=== PATIENT | female | born 1945 | race Caucasian/White ===

== ENCOUNTER → 2018-10-13 10:38 | Outpatient (CLI) | payer MEDICARE, SELFPAY ==
[2018-10-13 11:12] LABS: Alanine Aminotransferase 40 IU/L (9-52); Aspartate Aminotransferase 33 IU/L (14-36); Blood Urea Nitrogen 16 mg/dL (7-17); Calcium 9.5 mg/dL (8.4-10.2); Carbon Dioxide 29 mmol/L (22-32); Chloride 100 mmol/L (98-107); Cholesterol 156 mg/dL (140-199); Estimated Glomerular Filt Rate > 60.0 mL/min (>60); Glucose 105 mg/dL (80-110); HDL Cholesterol 51 mg/dL (40-60); HEMOLYSIS < 15 (0-50); LDL Cholesterol Calculated 72 mg/dL (<100); Sodium 139 mmol/L (137-145); Triglycerides 163 mg/dL (35-150)
[2018-10-13 11:39] LABS: TSH w/ Reflex to FT4 1.85 uIU/mL (0.47-4.68)
== END ==
PROVIDERS: Visit Provider Internal Medicine
DX: E03.9 Hypothyroidism, unspecified (principal); E78.00 Pure hypercholesterolemia, unspecified; I10 Essential (primary) hypertension
CPT/HCPCS: 36415; 80048; 80061; 84443; 84450; 84460

== ENCOUNTER 2019-01-24 20:12 | Emergency (ER) | payer MEDICARE, SELFPAY ==
[2019-01-24 20:24] VITALS: BP 200/117; PULSE 88; TEMP 36.6; O2SAT 97; BMI 26.6
[2019-01-24 21:00] VITALS: BP 186/101; PULSE 77; RESP 16; O2SAT 98
--- NOTE | 2019-01-24 21:00 | ED_ITS ---
HPI - General Adult General Chief complaint: Hypertension Stated complaint: STATES HIGH BLOOD PRESSURE Time Seen by Provider: 01/24/19 21:00 Source: patient Mode of arrival: ambulatory Limitations: no limitations History of Present Illness HPI narrative: Patient is a 73-year-old female who comes emergency department today for evaluation because of her high blood pressure. She has recently been undergoing changes in her blood pressure medication under the direction of her primary doctor. Over the past couple days she has changed from metoprolol 2 times a day to the metoprolol ER once a day back to the metoprolol 2 times a day. She is also on lisinopril. She has been taking her blood pressure today and it has been in the 170s to 190 systolic. She denies any other symptoms. When she called the nurse advice line told her to come into the emergency department for evaluation. Related Data Home Medications Medication Instructions Recorded Confirmed ASPIRIN (Aspirin EC) 81 mg PO Q DAY #0 01/17/11 FOLIC ACID/VIT A/VIT B1/VIT 1 tab PO Q DAY #0 01/17/11 (#MULTIVITAMIN) Review of Systems Constitutional Denies fever(s) and Denies headache(s) Eyes Denies change in vision ENT Ears, Nose, Mouth, and Throat: Denies vertigo, Denies dizziness, Denies headach e(s) and Denies sore throat Cardiovascular Denies chest pain and Denies dyspnea Respiratory Denies dyspnea Gastrointestinal Gastrointestinal: Denies abdominal pain, Denies nausea and Denies vomiting Genitourinary Denies dysuria Musculoskeletal Denies myalgias and Denies arthralgias Integumentary/Breasts Denies rash Neurologic Denies confusion, Denies vertigo, Denies dizziness, Denies headache(s) and Denies paresthesias Psychiatric Denies confusion Hematologic/Lymphatic Denies easy bleeding and Denies easy bruising [facility] Medical History Hypertension (Acute) Social History Smoking Status: Never smoker Social History Smoking Status: Never smoker Exam Initial Vital Signs Initial Vital Signs: Vital Signs Temperature 98 F 01/24/19 20:24 Pulse Rate 88 01/24/19 20:24 Blood Pressure 200/117 H 01/24/19 20:24 Pulse Oximetry 97 01/24/19 20:24 Const General: cooperative, healthy appearing, comfortable, well developed, well groomed and No acute distress Orientation: alert, awake and oriented x3 HENMT Head: normal to inspection and normocephalic Resp Effort & Inspection: normal respiratory effort Auscultation: clear to auscultation bilaterally Cardio Rate: regular rate Rhythm: regular rhythm GI Inspection: non-distended Palpation: soft Skin Lesions: no lesions Rashes: no rashes Neuro General: alert, awake and oriented x3 Cognition: normal cognition Speech: speech normal Gait: normal gait Motor: muscle tone normal throughout Sensory Exam: no sensory deficits noted Extrem General: normal to inspection and capillary refill normal Psych Appearance: grossly normal and well kempt Course Vital Signs - 8 hr 01/24/19 20:24 01/24/19 21:00 01/24/19 21:32 Temperature 98 F Pulse Rate 88 77 77 Respiratory Rate 16 17 Blood Pressure 200/117 H Blood Pressure [Left Arm] 186/101 H 177/90 H Pulse Oximetry 97 98 95 01/24/19 22:08 Temperature Pulse Rate 72 Respiratory Rate 18 Blood Pressure 160/80 H Blood Pressure [Left Arm] Pulse Oximetry 96 Medical Decision Making MDM Narrative Medical decision making narrative: Patient is hypertensive but it is asymptomatic from this. Low suspicion for end-organ dysfunction. Will hold on further workup. Her blood pressure has gone down after sitting quietly in the room for period of time. Had a long discussion with the patient regarding her symptoms. We did discuss how she should be taking her blood pressure at home. Does appear that she is taking her medication as directed by her primary doctor. She told me that she was supposed to call her primary doctor tomorrow to discuss her blood pressure readings. She was given return precautions and follow-up instructions. She expressed understanding and agreement plan. Discharge Plan Departure Patient Disposition: Home Clinical Impression: Hypertension Qualifiers: Hypertension type: unspecified Qualified Code(s): I10 - Essential (primary) hypertension Discharge Date/Time: 01/24/19 22:09 Interventions: ED Discharge Assessment Last Done: 01/24/19 22:08 Instructions: DI for High Blood Pressure Activity Restrictions/Additional Instructions: Continue blood pressure medications as directed. Call Dr. Gomez tomorrow to schedule a follow-up. Return to the emergency department for any new or worsening symptoms Prescriptions: No Action ASPIRIN (Aspirin EC) 81 mg PO Q DAY Qty: 0 RF: 0 FOLIC ACID/VIT A/VIT B1/VIT (#MULTIVITAMIN) 1 tab PO Q DAY Qty: 0 RF: 0 Referrals: Almita Gomez MD [Primary Care Provider] -
[2019-01-24 21:32] VITALS: BP 177/90; PULSE 77; RESP 17; O2SAT 95
[2019-01-24 22:08] VITALS: BP 160/80; PULSE 72; RESP 18; O2SAT 96
== END 2019-01-24 22:09 | disposition home or self-care (01) ==
PROVIDERS: Emergency Provider Emergency Medicine; Family Provider Internal Medicine; PCP Internal Medicine
DX: I10 Essential (primary) hypertension (principal)
CPT/HCPCS: 36591; 99282

== ENCOUNTER → 2019-06-10 14:33 | Outpatient (CLI) | payer MEDICARE, SELFPAY ==
[2019-06-10 18:09] LABS: Hep C Virus Ab w/Reflex Quant NEGATIVE s/c (NEGATIVE)
== END ==
PROVIDERS: Internal Medicine Gastroenterology; Family Provider Internal Medicine; PCP Internal Medicine; Visit Provider Nurse Practitioner
DX: Z11.59 Encounter for screening for other viral diseases (principal)
CPT/HCPCS: 36415; 86803

== ENCOUNTER 2019-09-18 07:32 | Day surgery (SDC) | payer MEDICARE, SELFPAY ==
[2019-09-18] VITALS (8 sets, daily range): BP systolic 119–168; BP diastolic 74–87; PULSE 64–99; RESP 9–19; TEMP 36–37.1; O2SAT 91–99; BMI 25.8
[2019-09-18] MEDS: SODIUM CHLORIDE 0.9% 1,000 ML 100 ML IV (07:40)
--- NOTE | 2019-09-18 09:03 | PM.HP.1 ---
History of Present Illness History of Present Illness Chief complaint: [id number] SCREENING COLONOSCOPY W/POSS BX Patient History Family & Social History Social History: household members spouse Tobacco & Substance use: Smoking Status Never smoker alcohol intake frequency holiday/special occasion Substance Use Type does not use Meds Home Medications and Allergies Home Medications Medication Instructions Recorded Confirmed Type amlodipine 2.5 mg PO DAILY 09/18/19 09/18/19 History atorvastatin 10 mg PO BEDTIME 09/18/19 09/18/19 History coenzyme Q10 [CoQ-10] 100 mg PO DAILY 09/18/19 09/18/19 History levothyroxine 75 mcg PO DAILY 09/18/19 09/18/19 History lisinopril 40 mg PO DAILY 09/18/19 09/18/19 History metoprolol tartrate 50 mg PO BID 09/18/19 09/18/19 History Allergies Allergy/AdvReac Type Severity Reaction Status Date / Time No Known Drug Allergies Allergy Verified 09/18/19 07:48 Exam Vital Signs (past 8 hours): - 09/18/19 08:05 Temperature 98.7 F Pulse Rate 99 H Respiratory Rate 15 Blood Pressure 168/80 H Pulse Oximetry 99 Oxygen Delivery Method Room Air Narrative Exam Narrative: Oropharynx free of lesions Chest clear to auscultation percussion Cardiac exam reveals no S3 or murmur Assessment & Plan Assessment & Plan narrative: Need for colorectal cancer screening. Risks, benefits, alternatives have been explained.
--- NOTE | 2019-09-18 09:04 | PM.OP.ENDO ---
Operative Date/Time/Diagnoses Date of procedure: 09/18/19 Time of procedure: 09:04 Pre-op diagnosis: See indication and findings Procedure & Clinicians Study performed: Colonoscopy Same procedure as scheduled: Yes (Colorectal cancer screening) Indications: Colorectal cancer screening Surgeon: Kate Frank Procedure Notes Procedure in detail: After informed consent was obtained the patient was placed in left lateral decubitus position. The video colonoscope was introduced the rectum slowly advanced to cecum. On slow withdrawal mucosa was carefully examined. The scope was removed. The patient tolerated procedure well. The preparation was good. Blood loss none Complications none Findings 1. Severe sigmoid diverticulosis 2. Otherwise negative colonoscopy to cecum Patient will not need follow-up colonoscopy for 10 years if in excellent health.
[2019-09-18] MEDS: fentaNYL 250 MCG/5 ML INJ IV (09:06)
[2019-09-18] MEDS: MIDAZOLAM 5 MG/5 ML VIAL IV (09:06)
== END 2019-09-18 10:28 | disposition home or self-care (01) ==
LOC: ENDO 07:35
PROVIDERS: PCP Internal Medicine; Visit Provider Internal Medicine Gastroenterology
PROC: 0DJD8ZZ Inspection of Lower Intestinal Tract, Via Natural or Artificial Opening Endoscopic (ICD-10-PCS; CPT 45378; principal; 2019-09-18 08:30)
DX: Z12.11 Encounter for screening for malignant neoplasm of colon (principal); I10 Essential (primary) hypertension; K57.30 Diverticulosis of large intestine without perforation or abscess without bleeding
CPT/HCPCS: G0121; J2250; J3010

== ENCOUNTER → 2020-02-13 07:56 | Outpatient (CLI) | payer MEDICARE, SELFPAY ==
[2020-02-13 09:41] LABS: Alanine Aminotransferase 24 IU/L (<35); Albumin 4.3 g/dL (3.5-5.0); Albumin Globulin Ratio 1.5 (1.0-2.8); Alkaline Phosphatase 59 U/L (38-126); Aspartate Aminotransferase 37 IU/L (14-36); BUN Creatinine Ratio 17.1 (6-22); Bilirubin Total 0.6 mg/dL (0.2-1.3); Blood Urea Nitrogen 12 mg/dL (7-17); Calcium 9.5 mg/dL (8.4-10.2); Carbon Dioxide 28 mmol/L (22-32); Chloride 103 mmol/L (98-107); Cholesterol 137 mg/dL (140-199); Estimated Glomerular Filt Rate > 60.0 mL/min (>60); Globulin 2.9 g/dL (1.7-4.1); Glucose 105 mg/dL (80-110); HDL Cholesterol 50 mg/dL (40-60); HEMOLYSIS < 15 (0-50); LDL Cholesterol Calculated 64 mg/dL (<100); Potassium 3.6 mmol/L (3.4-5.1); Sodium 140 mmol/L (137-145); Total Protein 7.2 g/dL (6.3-8.2); Triglycerides 115 mg/dL (35-150)
[2020-02-13 10:08] LABS: TSH w/ Reflex to FT4 1.09 uIU/mL (0.47-4.68)
== END ==
PROVIDERS: PCP Internal Medicine; Referring Provider Internal Medicine; Visit Provider Internal Medicine
DX: I10 Essential (primary) hypertension (principal); E03.9 Hypothyroidism, unspecified; E78.5 Hyperlipidemia, unspecified
CPT/HCPCS: 36415; 80053; 80061; 84443

== ENCOUNTER → 2020-06-30 18:34 | Outpatient (ROUT) | payer MEDICARE, SELFPAY ==
[2020-06-30 19:12] LABS: Add Manual Diff / Slide Review NO; Basophils Absolute Auto 0 /uL (0-100); Basophils Percent Auto 0.6 % (0-2); Eosinophils Absolute Auto 100 /uL (0-450); Eosinophils Percent Auto 1.6 % (2-4); Hematocrit 41.3 % (36-46); Hemoglobin 13.7 g/dL (12.0-16.0); Lymphocytes Absolute Auto 1500 /uL (1100-4500); Lymphocytes Percent Auto 20.1 % (25-40); Mean Corpuscular HGB Conc 33.2 % (30-36); Mean Corpuscular Hemoglobin 30.4 PG (26-34); Mean Corpuscular Volume 91.6 fL (80-100); Monocytes Absolute Auto 500 /uL (0-900); Monocytes Percent Auto 6.6 % (3-14); Neutrophils Absolute Auto 5200 /uL (1500-7000); Neutrophils Percent Auto 71.1 % (50-75); Platelet Count 360 X10^3/uL (150-400); Red Blood Cell Count 4.51 X10^6/uL (4.0-5.2); Red Cell Distribution Width 13.5 % (11.6-14.8); White Blood Cell Count 7.3 X10^3/uL (4.5-11.0)
[2020-06-30 19:22] LABS: BUN Creatinine Ratio 24.5 (6-22); Blood Urea Nitrogen 27 mg/dL (7-17); Calcium 9.7 mg/dL (8.4-10.2); Carbon Dioxide 29 mmol/L (22-32); Chloride 101 mmol/L (98-107); Estimated Glomerular Filt Rate 48.6 mL/min (>60); Glucose 106 mg/dL (80-110); HEMOLYSIS < 15 (0-50); Potassium 4.9 mmol/L (3.4-5.1); Sodium 138 mmol/L (137-145)
[2020-06-30 20:10] LABS: Vitamin B12 315 pg/mL (239-931)
== END ==
PROVIDERS: PCP Internal Medicine; Visit Provider Internal Medicine
DX: I10 Essential (primary) hypertension (principal); R53.82 Chronic fatigue, unspecified
CPT/HCPCS: 80048; 82607; 85025

== ENCOUNTER → 2020-07-15 19:11 | Outpatient (ROUT) | payer MEDICARE, SELFPAY ==
[2020-07-15 19:44] LABS: BUN Creatinine Ratio 15.2 (6-22); Blood Urea Nitrogen 15 mg/dL (7-17); Calcium 9.9 mg/dL (8.4-10.2); Carbon Dioxide 27 mmol/L (22-32); Chloride 104 mmol/L (98-107); Estimated Glomerular Filt Rate 54.8 mL/min (>60); Glucose 94 mg/dL (80-110); HEMOLYSIS < 15 (0-50); Potassium 4.7 mmol/L (3.4-5.1); Sodium 138 mmol/L (137-145)
== END ==
PROVIDERS: PCP Internal Medicine; Visit Provider Internal Medicine
DX: N17.9 Acute kidney failure, unspecified (principal)
CPT/HCPCS: 80048

== ENCOUNTER → 2020-11-06 10:43 | Outpatient (CLI) | payer MEDICARE, SELFPAY ==
[2020-11-06] MEDS: COVID-19 VACC #1, MRNA(MOD) 100 MCG/0.5 ML VIAL IM (10:48)
== END ==
PROVIDERS: PCP Internal Medicine; Visit Provider Internal Medicine
DX: Z23 Encounter for immunization (principal)
CPT/HCPCS: 0011A; 91301

== ENCOUNTER → 2020-12-03 13:22 | Outpatient (CLI) | payer MEDICARE, SELFPAY ==
[2020-12-03] MEDS: COVID-19 VACC #2, MRNA(MOD) 100 MCG/0.5 ML VIAL IM (13:27)
== END ==
PROVIDERS: PCP Internal Medicine; Visit Provider Internal Medicine
DX: Z23 Encounter for immunization (principal)
CPT/HCPCS: 0012A; 91301

== ENCOUNTER → 2021-03-10 10:44 | Outpatient (CLI) | payer MEDICARE, SELFPAY ==
[2021-03-10 11:43] LABS: Alanine Aminotransferase 20 IU/L (<35); Albumin 3.9 g/dL (3.5-5.0); Albumin Globulin Ratio 1.4 (1.0-2.8); Alkaline Phosphatase 52 U/L (38-126); Aspartate Aminotransferase 28 IU/L (14-36); BUN Creatinine Ratio 24.1 (6-22); Bilirubin Total 0.5 mg/dL (0.2-1.3); Blood Urea Nitrogen 28 mg/dL (7-17); Calcium 9.7 mg/dL (8.4-10.2); Carbon Dioxide 26 mmol/L (22-32); Chloride 103 mmol/L (98-107); Cholesterol 164 mg/dL (140-199); Estimated Glomerular Filt Rate 45.5 mL/min (>60); Globulin 2.8 g/dL (1.7-4.1); Glucose 97 mg/dL (80-110); HDL Cholesterol 63 mg/dL (40-60); HEMOLYSIS < 15 (0-50); LDL Cholesterol Calculated 75 mg/dL (<100); Potassium 4.9 mmol/L (3.4-5.1); Sodium 135 mmol/L (137-145); Total Protein 6.7 g/dL (6.3-8.2); Triglycerides 132 mg/dL (35-150)
[2021-03-10 12:06] LABS: TSH w/ Reflex to FT4 0.32 uIU/mL (0.47-4.68)
[2021-03-10 12:28] LABS: Vitamin B12 > 1000 pg/mL (239-931)
[2021-03-10 12:32] LABS: Free T4, Direct Thyroxine 1.67 ng/dL (0.78-2.19)
== END ==
PROVIDERS: PCP Internal Medicine; Referring Provider Internal Medicine; Visit Provider Internal Medicine
DX: E78.00 Pure hypercholesterolemia, unspecified (principal); E53.8 Deficiency of other specified B group vitamins; E03.9 Hypothyroidism, unspecified; I10 Essential (primary) hypertension
CPT/HCPCS: 36415; 80053; 80061; 82607; 84439; 84443

== ENCOUNTER → 2021-06-23 14:43 | Outpatient (CLI) | payer MEDICARE, SELFPAY | PROVIDERS: PCP Internal Medicine; Referring Provider Internal Medicine; Visit Provider Internal Medicine | DX: Z78.0 Asymptomatic menopausal state (principal); M85.852 Other specified disorders of bone density and structure, left thigh; M85.851 Other specified disorders of bone density and structure, right thigh | CPT/HCPCS: 77080 ==

== ENCOUNTER → 2022-02-05 17:57 | Outpatient (CLI) | payer MEDICARE, SELFPAY ==
[2022-02-05 19:27] LABS: COVID19 -Nasal RAPID Negative (Negative)
== END ==
PROVIDERS: PCP Internal Medicine; Visit Provider Physician Assistant
DX: Z20.822 Contact with and (suspected) exposure to COVID-19 (principal)
CPT/HCPCS: 87635

== ENCOUNTER → 2022-02-07 15:31 | Outpatient (CLI) | payer MEDICARE, SELFPAY ==
--- NOTE | 2022-02-07 15:33 | DI.RAD.S_ITS ---
PROCEDURE: XR CHEST 2V INDICATIONS: cough TECHNIQUE: 2 views of the chest were acquired. COMPARISON: None. FINDINGS: Surgical changes and devices: None. Lungs and pleura: Coarsened interstitial markings. Left basilar atelectasis/scarring. No consolidation, pleural effusions or pneumothorax. Mediastinum: Mediastinal contours are normal. Heart size is normal. Bones and chest wall: No suspicious bony abnormalities. Soft tissues appear unremarkable. IMPRESSION: Left basilar atelectasis/scarring. Dictated by: Jareth Seaman M.D. on 02/07/2022 at 16:12 Approved by: Jareth Seaman M.D. on 02/07/2022 at 16:12
== END ==
PROVIDERS: PCP Internal Medicine; Referring Provider Nurse Practitioner Family; Visit Provider Nurse Practitioner Family
DX: R05.9 Cough, unspecified (principal)
CPT/HCPCS: 71046

== ENCOUNTER → 2022-03-10 13:29 | Outpatient (CLI) | payer MEDICARE, SELFPAY ==
--- NOTE | 2022-03-10 13:42 | DI.RAD.S_ITS ---
PROCEDURE: XR CHEST 2V INDICATIONS: COUGH TECHNIQUE: 2 views of the chest were acquired. COMPARISON: [facility], CR, XR CHEST 2V, 02/07/2022, 15:30. FINDINGS: Surgical changes and devices: None. Lungs and pleura: Lungs are clear. No pleural effusions or pneumothorax. Mediastinum: Mediastinal contours are normal. Heart size is normal. Bones and chest wall: No suspicious bony abnormalities. Soft tissues appear unremarkable. IMPRESSION: No acute cardiopulmonary process demonstrated radiographically. Dictated by: Gopal Chaudhari M.D. on 03/10/2022 at 14:10 Approved by: Gopal Chaudhari M.D. on 03/10/2022 at 14:11
== END ==
PROVIDERS: PCP Internal Medicine; Referring Provider Internal Medicine; Visit Provider Internal Medicine
DX: R05.9 Cough, unspecified (principal)
CPT/HCPCS: 71046

== ENCOUNTER → 2022-11-24 09:38 | Outpatient (CLI) | payer MEDICARE, SELFPAY ==
[2022-11-24 11:37] LABS: Influenza A - CEPHEID Flu A NEGATIVE (NEGATIVE); Influenza B - CEPHEID Flu B NEGATIVE (NEGATIVE); Respiratory Syncytial Virus Negative (Negative)
[2022-11-24 11:40] LABS: COVID-19 CEPHEID 4-PLEX PCR Negative (Negative)
== END ==
PROVIDERS: Visit Provider Nurse Practitioner Family
DX: R05.1 Acute cough (principal)
CPT/HCPCS: 0241U

== ENCOUNTER → 2022-11-24 10:35 | Outpatient (CLI) | payer MEDICARE, SELFPAY ==
--- NOTE | 2022-11-24 10:37 | DI.RAD.S_ITS ---
PROCEDURE: XR CHEST 2V INDICATIONS: Cough TECHNIQUE: 2 views of the chest were acquired. COMPARISON: [facility], CR, XR CHEST 2V, 02/07/2022, 15:30. [facility], CR, XR CHEST 2V, 03/10/2022, 13:31. FINDINGS: Surgical changes and devices: None. Lungs and pleura: There is a nodular density in the left lower lung zone, not seen on 03/10/2022. No pleural effusions or pneumothorax. Mediastinum: Mediastinal contours are normal. Heart size is normal. Bones and chest wall: No suspicious bony abnormalities. Soft tissues appear unremarkable. IMPRESSION: A nodular density in the left lower lung zone, new since the last exam. This could represent focal pneumonia. Recommend a short interval follow-up chest x-ray after treatment. If persists, recommend chest CT for further evaluation. Dictated by: Katherine Cruz M.D. on 11/24/2022 at 11:29 Approved by: Katherine Cruz M.D. on 11/24/2022 at 11:31
== END ==
PROVIDERS: Referring Provider Nurse Practitioner Family; Visit Provider Nurse Practitioner Family
DX: R05.1 Acute cough (principal); R91.1 Solitary pulmonary nodule
CPT/HCPCS: 0241U; 71046

== ENCOUNTER → 2022-12-02 16:22 | Outpatient (CLI) | payer MEDICARE, SELFPAY ==
--- NOTE | 2022-12-02 | DI.RAD.S_ITS ---
PROCEDURE: XR CHEST 2V INDICATIONS: FOLLOW UP TECHNIQUE: 2 views of the chest were acquired. COMPARISON: [facility], CR, XR CHEST 2V, 02/07/2022, 15:30. [facility], CR, XR CHEST 2V, 03/10/2022, 13:31. [facility], CR, XR CHEST 2V, 11/24/2022, 10:41. FINDINGS: Surgical changes and devices: None. Lungs and pleura: Previously seen nodular density in the right mid lung zone demonstrates near complete resolution. Subtle nodular density in the region appears relatively similar to chest radiograph dated February 07, 2022. No pleural effusions or pneumothorax. Mediastinum: Mediastinal contours are normal. Heart size is normal. Bones and chest wall: No suspicious bony abnormalities. Soft tissues appear unremarkable. IMPRESSION: Near complete resolution of previously described right mid lung zone nodular density. Subtle persistent nodular density is visualized which appears not significantly changed compared to February 07, 2022 study. Dictated by: Karsten Gómze M.D. on 12/02/2022 at 17:28 Approved by: Karsten Gómez M.D. on 12/02/2022 at 17:30
== END ==
PROVIDERS: Referring Provider Internal Medicine; Visit Provider Internal Medicine
DX: J18.9 Pneumonia, unspecified organism (principal)
CPT/HCPCS: 71046

== ENCOUNTER → 2023-04-03 10:02 | Outpatient (CLI) | payer MEDICARE, SELFPAY ==
[2023-04-03 11:35] LABS: Hematocrit 35.9 % (36-46)
[2023-04-03 12:16] LABS: BUN Creatinine Ratio 16.5 (6-22); Blood Urea Nitrogen 18 mg/dL (7-17); Calcium 8.9 mg/dL (8.4-10.2); Carbon Dioxide 29 mmol/L (22-32); Chloride 99 mmol/L (98-107); Estimated Glomerular Filt Rate 52 mL/min (>60); Glucose 100 mg/dL (80-110); HEMOLYSIS < 15 (0-50); Potassium 4.7 mmol/L (3.4-5.1); Sodium 135 mmol/L (137-145)
[2023-04-03 12:33] LABS: Creatinine Urine Random 63.9 mg/dL; Protein (Total) Urine Random 6 mg/dL (0-12); Protein Creatinine Ratio Urine 0.09 GRAM/24H
== END ==
PROVIDERS: PCP Internal Medicine; Referring Provider Internal Medicine Nephrology; Visit Provider Internal Medicine Nephrology
DX: N05.9 Unspecified nephritic syndrome with unspecified morphologic changes (principal); D64.9 Anemia, unspecified; R80.9 Proteinuria, unspecified
CPT/HCPCS: 36415; 80048; 82570; 84156; 85014; 85018

== ENCOUNTER → 2023-09-05 17:59 | Outpatient (CLI) | payer MEDICARE, SELFPAY ==
--- NOTE | 2023-09-05 18:00 | DI.RAD.S_ITS ---
PROCEDURE: XR CHEST 2V INDICATIONS: Cough x1.5 weeks TECHNIQUE: 2 views of the chest were acquired. COMPARISON: [facility], CR, XR CHEST 2V, 12/02/2022, 16:23. [facility], CR, XR CHEST 2V, 11/24/2022, 10:41. FINDINGS: Surgical changes and devices: None. Lungs and pleura: Minimal residual nodular density within the right mid lung zone. No new focal pulmonary consolidations. No pleural effusions or pneumothorax. Mediastinum: Mediastinal contours are normal. Heart size is normal. Bones and chest wall: No suspicious bony abnormalities. Soft tissues appear unremarkable. IMPRESSION: Minimal residual nodular density within the right mid lung zone. No new focal pulmonary consolidations. Dictated by: Jonathon Deleon M.D. on 09/06/2023 at 8:50 Approved by: Jonathon Deleon M.D. on 09/06/2023 at 8:51
== END ==
PROVIDERS: PCP Internal Medicine; Visit Provider Physician Assistant
DX: R05.9 Cough, unspecified (principal)
CPT/HCPCS: 71046

== ENCOUNTER → 2023-09-14 16:37 | Outpatient (CLI) | payer MEDICARE, SELFPAY ==
[2023-09-14 18:09] LABS: Influenza A - CEPHEID Flu A NEGATIVE (NEGATIVE); Influenza B - CEPHEID Flu B NEGATIVE (NEGATIVE); Respiratory Syncytial Virus Negative (Negative)
[2023-09-14 18:41] LABS: COVID-19 CEPHEID 4-PLEX PCR Negative (Negative)
== END ==
PROVIDERS: PCP Internal Medicine; Visit Provider Nurse Practitioner Family
DX: R05.2 Subacute cough (principal)
CPT/HCPCS: 0241U

== ENCOUNTER → 2023-09-20 16:25 | Outpatient (CLI) | payer MEDICARE, SELFPAY ==
[2023-09-20 20:42] LABS: Influenza A - CEPHEID Flu A NEGATIVE (NEGATIVE); Influenza B - CEPHEID Flu B NEGATIVE (NEGATIVE); Respiratory Syncytial Virus Negative (Negative)
[2023-09-20 20:44] LABS: COVID-19 CEPHEID 4-PLEX PCR Negative (Negative)
== END ==
PROVIDERS: PCP Internal Medicine; Visit Provider Physician Assistant
DX: R05.1 Acute cough (principal)
CPT/HCPCS: 0241U

== ENCOUNTER → 2023-10-06 13:01 | Outpatient (CLI) | payer MEDICARE, SELFPAY ==
--- NOTE | 2023-10-06 13:02 | DI.RAD.S_ITS ---
PROCEDURE: XR CHEST 2V INDICATIONS: follow up TECHNIQUE: 2 views of the chest were acquired. COMPARISON: [facility], CR, XR CHEST 2V, 11/24/2022, 10:41. [facility], CR, XR CHEST 2V, 12/02/2022, 16:23. [facility], CR, XR CHEST 2V, 09/05/2023, 18:04. FINDINGS: Surgical changes and devices: None. Lungs and pleura: Bilateral interstitial prominence. Right mid lung zone nodular density is nearly resolved. Slight blunting of the left costophrenic angle, likely secondary to pleural scarring. No pleural effusions or pneumothorax. Mediastinum: Mediastinal contours are normal. Heart size is normal. Bones and chest wall: No suspicious bony abnormalities. Soft tissues appear unremarkable. IMPRESSION: Near resolution of nodular density in right midlung zone. Dictated by: Katherine Cruz M.D. on 10/06/2023 at 16:43 Approved by: Katherine Cruz M.D. on 10/06/2023 at 17:00
== END ==
LOC: RAD 13:02
PROVIDERS: PCP Internal Medicine; Referring Provider Internal Medicine; Visit Provider Internal Medicine
DX: R05.3 Chronic cough (principal)
CPT/HCPCS: 71046

== ENCOUNTER → 2024-05-15 14:46 | Outpatient (CLI) | payer MEDICARE, SELFPAY ==
[2024-05-15 15:08] LABS: Hematocrit 39.4 % (36-46); Hemoglobin 13.3 g/dL (12.0-16.0); Mean Corpuscular HGB Conc 33.8 % (30-36); Mean Corpuscular Hemoglobin 30.8 PG (26-34); Platelet Count 377 X10^3/uL (150-400); Red Blood Cell Count 4.33 X10^6/uL (4.0-5.2); Red Cell Distribution Width 13.1 % (11.6-14.8)
[2024-05-15 15:32] LABS: Alanine Aminotransferase 23 IU/L (<35); Albumin 4.4 g/dL (3.5-5.0); Albumin Globulin Ratio 1.6 (1.0-2.8); Alkaline Phosphatase 56 U/L (38-126); Aspartate Aminotransferase 35 IU/L (14-36); BUN Creatinine Ratio 13.7 (6-22); Bilirubin Total 0.6 mg/dL (0.2-1.3); Blood Urea Nitrogen 16 mg/dL (7-17); Calcium 9.7 mg/dL (8.4-10.2); Carbon Dioxide 28 mmol/L (22-32); Chloride 103 mmol/L (98-107); Cholesterol 151 mg/dL (140-199); Estimated Glomerular Filt Rate 48 mL/min (>60); Globulin 2.8 g/dL (1.7-4.1); Glucose 89 mg/dL (80-110); HDL Cholesterol 56 mg/dL (40-60); HEMOLYSIS < 15 (0-50); LDL Cholesterol Calculated 68 mg/dL (<100); Potassium 4.2 mmol/L (3.4-5.1); Sodium 139 mmol/L (137-145); Total Protein 7.2 g/dL (6.3-8.2); Triglycerides 134 mg/dL (35-150)
[2024-05-15 16:01] LABS: TSH w/ Reflex to FT4 2.52 uIU/mL (0.47-4.68)
== END ==
PROVIDERS: PCP Internal Medicine; Referring Provider Internal Medicine; Visit Provider Internal Medicine
DX: E03.9 Hypothyroidism, unspecified (principal); E78.2 Mixed hyperlipidemia; I10 Essential (primary) hypertension
CPT/HCPCS: 80053; 80061; 84443; 85027

== ENCOUNTER → 2024-05-30 08:30 | Outpatient (CLI) | payer MEDICARE, SELFPAY ==
--- NOTE | 2024-05-30 08:31 | DI.MG.S_ITS ---
BILATERAL DIGITAL SCREENING MAMMOGRAM 3D/2D WITH CAD: 05/30/2024 CLINICAL: Routine screening. Comparison is made to exams dated: 10/29/2014 mammogram, 10/08/2013 mammogram, and 08/24/2012 mammogram - [facility]. Both breasts are heterogeneously dense, which may obscure small masses (category c / 51-75% glandular tissue). Current study was also evaluated with a Computer Aided Detection (CAD) system. There are benign diffuse calcifications in the left breast. There also are benign calcifications in the right breast. Additionally, there are benign vascular calcifications in the right breast. No significant masses, calcifications, or other findings are seen in either breast. There has been no significant interval change. IMPRESSION: BENIGN There is no mammographic evidence of malignancy. A 1 year screening mammogram is recommended. Based on the Tyrer Cuzick model (a risk assessment model) the patient's lifetime risk is 3.0% and her 10 year risk is 0.0%. According to the ACR, ACS, and NCCN guidelines, an annual breast MRI exam along with mammogram is recommended if the patient's lifetime risk is 20% or greater. This exam was interpreted at Station ID: [id number]. NOTE: For mammograms, a report in lay terms will be sent to the patient. Approximately 15% of breast malignancies will not be visualized mammographically. In the management of a palpable breast mass, a negative mammogram must not discourage biopsy of a clinically suspicious lesion. Electronically Signed By: Tip okeefe/autumn:05/30/2024 11:22:26 letter sent: Normal Exam ACR BI-RADS Category 2: Benign Finding(s) 3342F
== END ==
PROVIDERS: PCP Internal Medicine; Referring Provider Internal Medicine; Visit Provider Internal Medicine
DX: Z12.31 Encounter for screening mammogram for malignant neoplasm of breast (principal); R92.333 Mammographic heterogeneous density, bilateral breasts
CPT/HCPCS: 77063; 77067

== ENCOUNTER 2024-06-11 11:59 | Emergency (ER) | payer MEDICARE, SELFPAY ==
[2024-06-11] VITALS (8 sets, daily range): BP systolic 179–203; BP diastolic 84–98; PULSE 75–84; RESP 9–21; TEMP 37.1; O2SAT 96–98; BMI 25.8
--- NOTE | 2024-06-11 12:20 | EKG_ITS ---
[address] [address] Test Date: 2024-06-11 Pat Name: Rhonda Wilhelm Department: [facility] Room: Gender: Female [employer] Planner: SRINATH : [id number] Requested By: Order Number: [id number] Reading MD: Jose Rivers Measurements Intervals [place] Rate: 72 P: 45 W[place]: 166 QRS: 13 QRSD: 72 T: 38 QT: 378 QTc: 413 Interpretive Statements Normal sinus rhythm Electronically Signed On 06-11-2024 12:54:16 PDT by Jose Rivers
--- NOTE | 2024-06-11 12:20 | DI.RAD.S_ITS ---
PROCEDURE: XR CHEST 1V INDICATIONS: chest pain TECHNIQUE: One view of the chest was acquired. COMPARISON: [facility], CR, XR CHEST 2V, 10/06/2023, 13:10. [facility], CR, XR CHEST 2V, 09/05/2023, 18:04. FINDINGS: Surgical changes and devices: None. Lungs and pleura: Low lung volumes. No dense consolidation or pleural effusion Mediastinum: Heart size is normal and unchanged Bones and chest wall: Degenerative findings IMPRESSION: Low lung volumes. No acute radiographic abnormality. Limited single view study. Dictated by: Bonifacio Landry M.D. on 06/11/2024 at 13:37 Approved by: Bonifacio Landry M.D. on 06/11/2024 at 13:37
[2024-06-11 12:58] LABS: Add Manual Diff / Slide Review NO; Basophils Absolute Auto 0 /uL (0-100); Basophils Percent Auto 0.6 % (0-2); Eosinophils Absolute Auto 100 /uL (0-450); Hematocrit 40.3 % (36-46); Hemoglobin 13.6 g/dL (12.0-16.0); Lymphocytes Absolute Auto 1400 /uL (1100-4500); Lymphocytes Percent Auto 16.6 % (25-40); Mean Corpuscular HGB Conc 33.7 % (30-36); Mean Corpuscular Hemoglobin 30.7 PG (26-34); Mean Corpuscular Volume 91.1 fL (80-100); Monocytes Absolute Auto 500 /uL (0-900); Monocytes Percent Auto 5.6 % (3-14); Neutrophils Absolute Auto 6300 /uL (1500-7000); Neutrophils Percent Auto 76.2 % (50-75); Platelet Count 352 X10^3/uL (150-400); Red Blood Cell Count 4.42 X10^6/uL (4.0-5.2); Red Cell Distribution Width 13.8 % (11.6-14.8); White Blood Cell Count 8.2 X10^3/uL (4.5-11.0)
[2024-06-11 13:00] LABS: Prothrombin Time 11.3 SECONDS (9.4-12.5)
[2024-06-11 13:02] LABS: PTT Partial Thromboplastin Tim 34 SECONDS (25.1-36.5)
[2024-06-11 13:07] LABS: Alanine Aminotransferase 34 IU/L (<35); Albumin 4.3 g/dL (3.5-5.0); Albumin Globulin Ratio 1.2 (1.0-2.8); Alkaline Phosphatase 66 U/L (38-126); Aspartate Aminotransferase 39 IU/L (14-36); BUN Creatinine Ratio 14.6 (6-22); Bilirubin Total 0.9 mg/dL (0.2-1.3); Blood Urea Nitrogen 15 mg/dL (7-17); Calcium 9.5 mg/dL (8.4-10.2); Carbon Dioxide 26 mmol/L (22-32); Chloride 102 mmol/L (98-107); Creatine Kinase 49 U/L (30-135); Estimated Glomerular Filt Rate 56 mL/min (>60); Globulin 3.5 g/dL (1.7-4.1); Glucose 129 mg/dL (80-110); HEMOLYSIS 33 (0-50); Lipase 76 U/L (23-300); Magnesium 1.8 mg/dL (1.6-2.3); Potassium 4.4 mmol/L (3.4-5.1); Sodium 136 mmol/L (137-145); Total Protein 7.8 g/dL (6.3-8.2)
[2024-06-11 13:18] LABS: NT-proBNP (BNP-Adult 18+) 286 pg/mL (<450); Troponin I < 0.012 ng/mL (0.01-0.034)
--- NOTE | 2024-06-11 13:48 | ED_ITS ---
HPI - General Adult General Chief complaint: Hypertension Stated complaint: Sent by MD; High BP Time Seen by Provider: 06/11/24 13:02 Source: patient Mode of arrival: Ambulatory History of Present Illness HPI narrative: 78-year-old female. Has a history of high blood pressure. Recently was taken off of her amlodipine and lisinopril secondary to concerns about becoming overmedicated and having lightheadedness and hypotension. Since she came off that medicine her primary doctor wanted her to continue to check her blood pressures at home. They have continued to elevate. She was talked with the primary doctor since then. Was started on losartan. She stated that since starting on losartan she had a headache every day. She was stopped in the losartan put back on the lisinopril at 40 mg. She continues to have high blood pressure. She states she does have a headache what is much better than what it once was. Denies chest pain, shortness of breath, abdominal pain or lower extremity swelling. Contacted her primary doctor today to let him know that her blood pressure was greater than 190 systolic and was advised to come to the emergency department for further evaluation. Related Data Home Medications Medication Instructions Recorded Confirmed lisinopril 40 mg tablet 40 mg PO QPM hypertension 06/11/24 06/11/24 Previous Rx's Medication Instructions Recorded atorvastatin 10 mg tablet 10 mg PO BEDTIME #90 tabs 04/08/24 levothyroxine 75 mcg tablet 75 mcg PO DAILY #90 tabs 04/08/24 metoprolol tartrate 50 mg tablet 50 mg PO BID #180 tabs 05/09/24 Allergies Allergy/AdvReac Type Severity Reaction Status Date / Time lisinopril AdvReac Intermediate Cough Verified 05/15/24 08:23 Review of Systems Review of Systems ROS Unobtainable: All systems reviewed & are unremarkable except as noted in HPI and below Patient History Medical History Primary osteoarthritis involving multiple joints Abnormal chest xray Wrist fracture (~2011) Chicken pox Allergic rhinitis Stage 3b chronic kidney disease (CKD) Osteopenia (~2021) Acquired hypothyroidism Mixed hyperlipidemia (~2014) Essential hypertension (~1995) Hypertension Surgical History Anesthesia History of cataract removal with insertion of prosthetic lens (~2016) History of microdiscectomy (~1988) History of tubal ligation (~1990) Status post laparoscopic surgery (~1989) History of hernia repair (~1954) Family History Father History of heart disease Hypertension Mother History of heart disease Hypertension Brother Diabetes mellitus Hx of BKA History of heart disease Sister Diabetes mellitus History of heart disease Hypertension Grandfather Diabetes mellitus Family/Other Asthma Cerebral palsy Social History details: (Krish), two 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 with CP), retired RN household members: spouse Smoking Status: Never smoker Smoking Status: Never smoker alcohol intake frequency: holidays/special occasions only Substance Use Type: does not use Exam Initial Vital Signs Initial Vital Signs: Vital Signs Temperature 98.8 F 06/11/24 12:03 Pulse Rate 84 06/11/24 12:03 Respiratory Rate 18 06/11/24 12:03 Blood Pressure 203/98 H 06/11/24 12:03 Pulse Oximetry 98 06/11/24 12:03 Oxygen Delivery Method Room Air 06/11/24 12:03 Const General: cooperative, comfortable and No ill appearing HENMT Head: normal to inspection and normocephalic Resp Effort & Inspection: normal respiratory effort Auscultation: clear to auscultation bilaterally Cardio Rate: regular rate Rhythm: regular rhythm GI Inspection: normal to inspection Skin General: no rashes or lesions noted Neuro General: patient alert, patient awake and moves all extremities Extrem General: No edema Course Orders Ordered: ED Orders 06/11/24 12:20 XR chest 1V Stat EKG-12 Lead Stat 06/11/24 12:45 Complete Blood Count AUTO DIFF Stat Comprehensive Metabolic Panel Stat Lipase Stat Magnesium Stat NT-proBNP (BNP-Adult 18+) Stat PTT Partial Thromboplastin Sage Stat Prothrombin Time INR Stat Troponin & CK Cardiac Panel Stat 06/11/24 14:00 CT head/brain wo con Stat Vital Signs Vital signs: Vital Signs - 8 hr 06/11/24 12:03 06/11/24 13:12 06/11/24 13:14 Temperature 98.8 F Pulse Rate 84 80 Respiratory Rate 18 Blood Pressure 203/98 H 198/96 H Pulse Oximetry 98 Oxygen Delivery Method Room Air 06/11/24 13:14 06/11/24 13:30 06/11/24 13:30 Temperature Pulse Rate 81 80 Respiratory Rate 18 21 Blood Pressure 192/92 H Pulse Oximetry 96 97 Oxygen Delivery Method Room Air Medical Decision Making Lab Data Lab results reviewed: Yes I reviewed the patient's lab results. 06/11/24 12:45 06/11/24 12:45 Labs: Lab Results 06/11/24 Range/Units 12:45 WBC 8.2 (4.5-11.0) X10^3/uL RBC 4.42 (4.0-5.2) X10^6/uL Hgb 13.6 (12.0-16.0) g/dL Hct 40.3 (36-46) % MCV 91.1 (80-100) fL MCH 30.7 (26-34) PG MCHC 33.7 (30-36) % RDW 13.8 (11.6-14.8) % Plt Count 352 (150-400) X10^3/uL Neut % (Auto) 76.2 H (50-75) % Lymph % (Auto) 16.6 L (25-40) % [place] % (Auto) 5.6 (3-14) % Eos % (Auto) 1.0 L (2-4) % Baso % (Auto) 0.6 (0-2) % Neut # (Auto) 6300 (0329-5986) /uL Lymph # (Auto) 1400 (7808-0553) /uL [place] # (Auto) 500 (0-900) /uL Eos # (Auto) 100 (0-450) /uL Baso # (Auto) 0 (0-100) /uL PT 11.3 (9.4-12.5) SECONDS INR 1.0 (0.9-1.3) APTT 34 (25.1-36.5) SECONDS Sodium 136 L (137-145) mmol/L Potassium 4.4 (3.4-5.1) mmol/L Chloride 102 (98-107) mmol/L Carbon Dioxide 26 (22-32) mmol/L BUN 15 (7-17) mg/dL Creatinine 1.03 (0.52-1.04) mg/dL Estimated GFR 56 L (>60) mL/min BUN/Creatinine Ratio 14.6 (6-22) Glucose 129 H (80-110) mg/dL Calcium 9.5 (8.4-10.2) mg/dL Magnesium 1.8 (1.6-2.3) mg/dL Total Bilirubin 0.9 (0.2-1.3) mg/dL AST 39 H (14-36) IU/L ALT 34 (<35) IU/L Alkaline Phosphatase 66 (38-126) U/L Total Creatine Kinase 49 (30-135) U/L Troponin I < 0.012 (0.01-0.034) ng/mL NT-Pro-B Natriuret Pep 286 (<450) pg/mL Total Protein 7.8 (6.3-8.2) g/dL Albumin 4.3 (3.5-5.0) g/dL Globulin 3.5 (1.7-4.1) g/dL Albumin/Globulin Ratio 1.2 (1.0-2.8) Lipase 76 (23-300) U/L Imaging Data Chest x-ray: Radiologist's Impression: PROCEDURE: XR CHEST 1V INDICATIONS: chest pain TECHNIQUE: One view of the chest was acquired. COMPARISON: [facility], , XR CHEST 2V, 10/06/2023, 13:10. [facility], , XR CHEST 2V, 09/05/2023, 18:04. FINDINGS: Surgical changes and devices: None. Lungs and pleura: Low lung volumes. No dense consolidation or pleural effusion Mediastinum: Heart size is normal and unchanged Bones and chest wall: Degenerative findings IMPRESSION: Low lung volumes. No acute radiographic abnormality. Limited single view study. CT scan - head: Radiologist's Impression: PROCEDURE: CT HEAD/BRAIN WO CON INDICATIONS: Hypertension and headache TECHNIQUE: Noncontrast 4.5 mm thick angled axial sections acquired from the foramen magnum to the vertex, with coronal and sagittal reformats. For radiation dose reduction, the following was used: automated exposure control, adjustment of mA and/or kV according to patient size. COMPARISON: None. FINDINGS: Image quality: Diagnostic CSF spaces: Basal cisterns are patent. Lateral ventricles are symmetric. Volume: Vascular calcifications. Periventricular white matter disease is commonly seen with chronic microangiopathy. Volume loss is present. These findings are [id number] Brain: No gross loss of newman-white differentiation or acute hemorrhage Craniofacial structures: No displaced fracture. No significant paranasal sinus opacity. Empty sella. IMPRESSION: No acute intracranial hemorrhage. Incidentally noted empty sella. If there is high concern for parenchymal pathology, consider further evaluation with MRI. ECG Data Attestation: I personally reviewed and interpreted this ECG as follows: Interpretation: Sinus rhythm Ventricular rate is 72 Normal axis Normal QRS Normal QTC No ST T wave changes MDM Narrative Medical decision making narrative: Patient is hypertensive but does not have ACS. No pulmonary edema. Not in CHF. No intracranial hemorrhage. Kidney functions unremarkable. Had a extensive discussion with the patient regarding her symptoms. She would like to start back on her amlodipine at 2.5 mg which I think is very reasonable in her situation. Will have her contact her primary doctor for follow-up. She was given return precautions. She expressed understanding and agreement. Discharge Plan Departure Patient Disposition: Home Clinical Impression: Hypertension Instructions: DI for High Blood Pressure Activity Restrictions/Additional Instructions: Recommend that you continue to take your lisinopril at 40 mg a day in the evening. You can add 2.5 mg of your amlodipine a day in the evening as well. Contact your primary doctor for follow-up. Continue to check your blood pressures at home and record the results. Return to the emergency department for new symptoms. Prescriptions: No Action atorvastatin 10 mg tablet 10 mg PO BEDTIME Qty: 90 3RF levothyroxine 75 mcg tablet 75 mcg PO DAILY Qty: 90 3RF metoprolol tartrate 50 mg tablet 50 mg PO BID Qty: 180 3RF lisinopril 40 mg tablet 40 mg PO QPM Referrals: Brendan Gonzalez MD [Primary Care Provider] - Stand Alone Forms: Patient Portal/API
--- NOTE | 2024-06-11 14:00 | DI.CT.S_ITS ---
PROCEDURE: CT HEAD/BRAIN WO CON INDICATIONS: Hypertension and headache TECHNIQUE: Noncontrast 4.5 mm thick angled axial sections acquired from the foramen magnum to the vertex, with coronal and sagittal reformats. For radiation dose reduction, the following was used: automated exposure control, adjustment of mA and/or kV according to patient size. COMPARISON: None. FINDINGS: Image quality: Diagnostic CSF spaces: Basal cisterns are patent. Lateral ventricles are symmetric. Volume: Vascular calcifications. Periventricular white matter disease is commonly seen with chronic microangiopathy. Volume loss is present. These findings are [id number] Brain: No gross loss of newman-white differentiation or acute hemorrhage Craniofacial structures: No displaced fracture. No significant paranasal sinus opacity. Empty sella. IMPRESSION: No acute intracranial hemorrhage. Incidentally noted empty sella. If there is high concern for parenchymal pathology, consider further evaluation with MRI. Dictated by: Bonifacio Landry M.D. on 06/11/2024 at 13:45 Approved by: Bonifacio Landry M.D. on 06/11/2024 at 13:46
== END 2024-06-11 14:45 | disposition home or self-care (01) ==
PROVIDERS: Emergency Provider Emergency Medicine; PCP Internal Medicine
DX: I10 Essential (primary) hypertension (principal); R07.9 Chest pain, unspecified; R51.9 Headache, unspecified; Z79.899 Other long term (current) drug therapy
CPT/HCPCS: 36415; 70450; 71045; 80053; 82550; 83690; 83735; 83880; 84484; 85025; 85610; 85730; 93005; 99284

== ENCOUNTER → 2025-05-06 14:33 | Outpatient (CLI) | payer MEDICARE, SELFPAY ==
--- NOTE | 2025-05-06 14:34 | DI.RAD.S_ITS ---
PROCEDURE: XR DEXA AXIAL SKELETON INDICATIONS: Osteopenia Follow Up COMPARISON: [facility], CR, XR DEXA AXIAL SKELETON, 06/23/2021, 15:08. FINDINGS: Lumbar Spine: Bone mineral density 1.143 ((previously 1.194) g/cm2, T score 0.9 (previously 0.2). Left Femoral Neck: Bone mineral density 0.668 (previously 0.861) g/cm2, T score -1.6 (previously-1.3). Left Hip: Bone mineral density 0.823 (previously 0.846) g/cm2, T score -1.0 (previously-1.3). Fracture Risk Calculation (when applicable): 10-year fracture risk of a major osteoporotic fracture 14 percent and of a hip fracture 3.4 percent. IMPRESSION: Osteopenia Follow-up guidelines as follows: Osteoporosis: Consider a repeat DEXA and Vertebral Fracture Assessment (VFA) exam in 2 years or sooner if medically necessary, to reassess this patient's status. Osteopenia: Consider a repeat DEXA in 2-3 years to reassess this patient's status, or if there is a new clinical indication. Normal: Consider a repeat DEXA in 5 years or sooner, or if there is a new clinical indication. All treatment decisions require clinical judgment and consideration of individual patient factors, including patient preferences, comorbidities, previous drug use, risk factors not captured in the FRAX model (e.g., frailty, falls, vitamin D deficiency, increased bone turnover, interval significant decline in bone density ) and possible under- or over-estimation of fracture risk by FRAX. In addition, the NOF Guide recommends that FDA-approved medical therapies be considered in postmenopausal women and men age >= 50 years with a: * Hip or vertebral (clinical or morphometric) fracture * T-score of <=-2.5 at the spine or hip * Ten-year fracture probability by FRAX of >= 3% for hip fracture or >=20% for major osteoporotic fracture. Dictated by: Patrick Nesbitt M.D. on 05/07/2025 at 9:12 Approved by: Patrick Nesbitt M.D. on 05/07/2025 at 9:15
== END ==
LOC: RAD 14:34
PROVIDERS: PCP Internal Medicine; Referring Provider Internal Medicine; Visit Provider Internal Medicine
DX: M85.89 Other specified disorders of bone density and structure, multiple sites (principal)
CPT/HCPCS: 77080

== ENCOUNTER → 2025-06-23 15:47 | Outpatient (CLI) | payer MEDICARE, SELFPAY ==
--- NOTE | 2025-06-23 15:48 | DI.MG.S_ITS ---
MM screening mammo BI: 06/23/2025. BI-RADS: 2 CLINICAL: 79-year old female for bilateral screening mammogram. Tyrer-Cuzick lifetime risk of 1.6%. No personal or first-degree family history of breast cancer. PRIOR EXAMS 05/30/2024. MAMMOGRAPHY TECHNIQUE: 2D and 3D (tomosynthesis) digital mammographic views obtained, with additional images as needed for full coverage. Current study was also evaluated with a Computer Aided Detection (CAD) system. DENSITY B. There are scattered areas of fibroglandular density. MAMMOGRAPHY FINDINGS Bilateral: Benign-appearing calcifications noted. There are no suspicious masses, calcifications, or other findings in the breast. No significant change from comparison. IMPRESSION: * No evidence of malignancy with benign findings. RECOMMENDATIONS Bilateral * Annual screening mammography. OVERALL ASSESSMENT CATEGORY BI-RADS-2: Benign. The [employer] recommends annual screening mammography beginning at age 40 for women with average risk of breast cancer. ELECTRONICALLY SIGNED: Esperanza Vann M.D. on 06/24/2025 at 12:08:24 PM PT Interpreting Station ID: [id number]
== END ==
LOC: MAMMO 15:47
PROVIDERS: PCP Internal Medicine; Referring Provider Internal Medicine; Visit Provider Internal Medicine
DX: Z12.31 Encounter for screening mammogram for malignant neoplasm of breast (principal)
CPT/HCPCS: 77063; 77067

== ENCOUNTER → 2025-07-02 14:08 | Outpatient (CLI) | payer MEDICARE, SELFPAY ==
[2025-07-02 14:39] LABS: Appearance Urine UA CLEAR; Bilirubin Urine UA NEGATIVE (NEGATIVE); Color Urine UA YELLOW; Glucose Urine UA NEGATIVE (Negative); Ketones Urine UA NEGATIVE (NEGATIVE); Leukocyte Esterase Urine UA 1+ (NEGATIVE); Nitrite Urine UA NEGATIVE (Negative); Occult Blood Urine UA TRACE-LYSED (Negative); Protein Urine UA NEGATIVE (Negative); Specific Gravity Urine UA 1.010 (1.000-1.035); Urobilinogen Urine UA 0.2 E.U./dL (0.2); pH Urine UA 5.5 (4.5-8.0)
[2025-07-02 14:41] LABS: Culture Indicated Urine Specimen Cultured
== END ==
PROVIDERS: PCP Internal Medicine; Referring Provider Internal Medicine; Visit Provider Internal Medicine
DX: R30.0 Dysuria (principal)
CPT/HCPCS: 81001; 87086

== ENCOUNTER → 2025-07-21 15:14 | Outpatient (CLI) | payer MEDICARE, SELFPAY ==
[2025-07-21 16:51] LABS: Cholesterol 150 mg/dL (140-199); HDL Cholesterol 67 mg/dL (40-60); Triglycerides 147 mg/dL (35-150)
[2025-07-21 16:55] LABS: Microalbumi Creatinin Ratio Ur 6.0 ug/mg CR (<30)
[2025-07-21 17:20] LABS: TSH w/ Reflex to FT4 0.40 uIU/mL (0.47-4.68)
[2025-07-21 17:49] LABS: Free T4, Direct Thyroxine 1.76 ng/dL (0.78-2.19)
== END ==
PROVIDERS: PCP Internal Medicine; Referring Provider Internal Medicine; Visit Provider Internal Medicine
DX: N18.32 Chronic kidney disease, stage 3b (principal); E03.9 Hypothyroidism, unspecified; R73.01 Impaired fasting glucose
CPT/HCPCS: 36415; 80061; 82043; 82310; 82570; 83970; 84439; 84443

== ENCOUNTER → 2025-09-15 15:17 | Outpatient (CLI) | payer MEDICARE, SELFPAY ==
[2025-09-15 15:56] LABS: Hematocrit 36.2 % (36-46); Hemoglobin 12.1 g/dL (12.0-16.0); Mean Corpuscular HGB Conc 33.5 % (30-36); Mean Corpuscular Hemoglobin 31.1 PG (26-34); Mean Corpuscular Volume 92.9 fL (80-100); Platelet Count 564 X10^3/uL (150-400)
[2025-09-15 16:24] LABS: Alanine Aminotransferase 15 IU/L (<35); Albumin 4.4 g/dL (3.5-5.0); Albumin Globulin Ratio 1.5 (1.0-2.8); Alkaline Phosphatase 81 U/L (38-126); Blood Urea Nitrogen 18 mg/dL (7-17); Calcium 10.2 mg/dL (8.4-10.2); Carbon Dioxide 26 mmol/L (22-32); Chloride 100 mmol/L (98-107); Estimated Glomerular Filt Rate 55 mL/min (>60); Globulin 3.0 g/dL (1.7-4.1); Glucose 102 mg/dL (70-99); HEMOLYSIS < 15 (0-50); Potassium 4.6 mmol/L (3.4-5.1); Sodium 135 mmol/L (137-145); Total Protein 7.4 g/dL (6.3-8.2)
[2025-09-15 16:54] LABS: TSH w/ Reflex to FT4 4.00 uIU/mL (0.47-4.68)
== END ==
PROVIDERS: PCP Internal Medicine; Referring Provider Internal Medicine; Visit Provider Internal Medicine
DX: E03.9 Hypothyroidism, unspecified (principal); I10 Essential (primary) hypertension
CPT/HCPCS: 36415; 80053; 84443; 85027